=== PATIENT | female | born 1950 | race Caucasian/White ===

== ENCOUNTER 2020-12-13 20:11 | Observation (INO) ==
[2020-12-13 20:51] LABS: Basophils % 0.6 % (0.0-0.8); Eosinophils # 0.4 10*3/uL (0.0-0.87); Eosinophils % 5.3 % (0.00-10.9); Hematocrit 46.9 VOL% (35.7-47.0); Hemoglobin 15.1 GM/DL (12.0-16.0); Immature Granulocytes % 0.5 %; Immature Granulocytes Absolute 0.03 #; Lymphocytes % 30.7 % (21.3-54.2); Mean Corpuscular HGB Conc 32.2 GM/DL (32-36); Mean Corpuscular Volume 87.8 FL (87-102); Mean Platelet Volume 10.9 FL (9.6-12.0); Monocytes % 9.5 % (1.7-12.7); Neutrophils % 53.4 % (38.7-73.9); Platelet Count 211 T/CUMM (130-400); Red Blood Count 5.34 MC/CUMM (3.8-5.5); Red Cell Distribution Width 13.7 % (9.3-17.3); White Blood Count 6.7 T/CUMM (4-12)
[2020-12-13 21:03] LABS: Partial Thromboplastin Time 29.1 SECS (23.9-33.8)
[2020-12-13 21:18] LABS: Albumin 3.9 G/DL (3.4-5.0); Bilirubin,Total 0.5 MG/DL (0.20-1.00); Calcium 9.5 MG/DL (8.5-10.1); Osmolality,Calculated 283.3 MOS/KG (273-304); Potassium 4.2 MMOL/L (3.5-5.1); Total Protein 8.1 G/DL (6.4-8.2)
[2020-12-13] MEDS ORDERED: hydrALAZINE 20 MG/1 ML VIAL IV STA (21:18)
[2020-12-13] MEDS ORDERED: ONDANSETRON 4 MG/2 ML VIAL IV STA (23:42)
[2020-12-14] MEDS ORDERED: ONDANSETRON 4 MG/2 ML VIAL IV PRN (00:35)
[2020-12-14] MEDS ORDERED: ACETAMINOPHEN 325 MG TABLET PO PRN (00:35)
[2020-12-14] MEDS: SODIUM CHLORIDE 0.45% 1,000 ML IV SCH ×2 (01:03→09:24)
[2020-12-14] MEDS ORDERED: NITROGLYCERIN SL 0.4 MG TABLET SL PRN (07:53)
[2020-12-14] MEDS ORDERED: CYANOCOBALAMIN 500 MCG TABLET PO SCH (09:00)
[2020-12-14] MEDS ORDERED: DOCUSATE SODIUM 100 MG CAPSULE PO SCH (09:00)
[2020-12-14] MEDS ORDERED: ASPIRIN CHEW 81 MG TABLET PO SCH (09:00)
[2020-12-14] MEDS ORDERED: ASCORBIC ACID 500 MG TABLET PO SCH (09:00)
[2020-12-14] MEDS ORDERED: ZINC GLUCONATE 50 MG TABLET PO SCH (09:00)
[2020-12-14] MEDS ORDERED: CLOPIDOGREL 75 MG TABLET PO SCH (09:00)
[2020-12-14] MEDS ORDERED: carvediloL 6.25 MG TABLET PO SCH (09:00)
[2020-12-14] MEDS ORDERED: CHOLECALCIFEROL 1,000 UNIT TABLET PO SCH (09:00)
[2020-12-14] MEDS ORDERED: MECLIZINE 25 MG TABLET PO PRN (10:53)
[2020-12-14 12:07] VITALS: BP 129/58
[2020-12-14] MEDS ORDERED: ESTRADIOL 1 MG TABLET PO SCH (21:00)
[2020-12-14] MEDS ORDERED: MAGNESIUM OXIDE 400 MG TABLET PO SCH (21:00)
[2020-12-14] MEDS ORDERED: COENZYME Q10 100 MG CAPSULE PO SCH (21:00)
[2020-12-16] MEDS ORDERED: ROSUVASTATIN 20 MG TABLET PO SCH (07:53)
== END 2020-12-14 14:56 | disposition home or self-care (01) ==
LOC: EDUNIT# → EDBD → N.ED 20:11 → N.EDINP 20:11 → N.TELES 23:42
PROVIDERS: ADMIT Family Medicine; ATTEND Family Medicine

== ENCOUNTER 2021-09-11 23:03 | Inpatient (IN) ==
[2021-09-11] MEDS ORDERED: FAMOTIDINE 20 MG/2 ML VIAL IV STA (23:24)
[2021-09-11 23:53] LABS: INR 1.2; Partial Thromboplastin Time 25.4 SECS (23.8-32.1)
[2021-09-12 00:09] LABS: Alanine Aminotransferase 23 U/L (13-56); Albumin 2.4 G/DL (3.4-5.0); Alkaline Phosphatase 60 U/L (45-117); Aspartate Amino Transferase 21 U/L (0-37); Bilirubin,Total < 0.39 MG/DL (0.20-1.00); Blood Urea Nitrogen 44 MG/DL (7-18); Calcium 7.8 MG/DL (8.5-10.1); Carbon Dioxide 22 MMOL/L (21-32); Chloride 111 MMOL/L (98-107); Estimated Glom Filtration Rate 48 ML/MIN; Glucose 198 MG/DL (74-106); Osmolality,Calculated 295.4 MOS/KG (273-304); Potassium 4.3 MMOL/L (3.5-5.1); Sodium 140 MMOL/L (136-145); Total Protein 4.8 G/DL (6.4-8.2)
[2021-09-12 00:10] LABS: Basophils % 0.3 % (0.0-0.8); Eosinophils # 0.1 10*3/uL (0.0-0.87); Eosinophils % 0.7 % (0.00-10.9); Hematocrit 20.9 VOL% (35.7-47.0); Hemoglobin 6.5 GM/DL (12.0-16.0); Immature Granulocytes % 0.6 %; Immature Granulocytes Absolute 0.05 #; Lymphocytes # 1.4 10*3/uL (1.4-4.0); Lymphocytes % 16.1 % (21.3-54.2); Mean Corpuscular HGB Conc 31.1 GM/DL (32-36); Mean Corpuscular Volume 91.3 FL (87-102); Mean Platelet Volume 10.4 FL (9.6-12.0); Monocytes # 0.7 10*3/uL (0.11-0.8); Neutrophils % 74.3 % (38.7-73.9); Platelet Count 306 T/CUMM (130-400); Red Blood Count 2.29 MC/CUMM (3.8-5.5); Red Cell Distribution Width 14.8 % (9.3-17.3); White Blood Count 8.9 T/CUMM (4-12)
[2021-09-12] MEDS ORDERED: SODIUM CHLORIDE 0.9% 1,000 ML IV PRN (00:16)
[2021-09-12] MEDS ORDERED: ACETAMINOPHEN 325 MG TABLET PO PRN (00:19)
[2021-09-12] MEDS: ONDANSETRON 4 MG/2 ML VIAL IV PRN ×2 (01:35→09:07)
[2021-09-12] MEDS ORDERED: NITROGLYCERIN SL 0.4 MG TABLET SL PRN (07:34)
[2021-09-12 08:04] LABS: Basophils # 0.1 10*3/uL (0.0-0.2); Basophils % 0.7 % (0.0-0.8); Eosinophils # 0.1 10*3/uL (0.0-0.87); Eosinophils % 1.1 % (0.00-10.9); Hematocrit 25.7 VOL% (35.7-47.0); Immature Granulocytes % 0.7 %; Immature Granulocytes Absolute 0.06 #; Lymphocytes # 2.1 10*3/uL (1.4-4.0); Lymphocytes % 23.1 % (21.3-54.2); Mean Corpuscular HGB Conc 32.3 GM/DL (32-36); Mean Corpuscular Volume 90.2 FL (87-102); Monocytes # 0.9 10*3/uL (0.11-0.8); Monocytes % 10.2 % (1.7-12.7); Neutrophils % 64.2 % (38.7-73.9); Platelet Count 286 T/CUMM (130-400); Red Cell Distribution Width 14.6 % (9.3-17.3); White Blood Count 9.1 T/CUMM (4-12)
[2021-09-12 08:05] LABS: Red Blood Count 2.85 MC/CUMM (3.8-5.5)
[2021-09-12 08:06] LABS: Hemoglobin 8.3 GM/DL (12.0-16.0)
[2021-09-12] MEDS ORDERED: AZITHROMYCIN INJ 500 MG in SODIUM CHLORIDE 0.9% 250 ML IV ONE (08:13)
[2021-09-12] MEDS ORDERED: HYDROmorphone 1 MG/1 ML SYRINGE IM PRN (08:20)
[2021-09-12] MEDS: FAMOTIDINE 20 MG TABLET PO SCH ×2 (08:22→20:00)
[2021-09-12] MEDS: DEXTROSE 5% NACL 0.9% 1,000 ML IV SCH ×3 (08:22→16:55)
[2021-09-12] MEDS: cefTRIAXone 1,000 MG in SODIUM CHLORIDE 0.9% 100 ML IV SCH (08:46)
[2021-09-12] MEDS: methylPREDNISolone SOD SUC 40 MG/1 ML VIAL IV SCH ×3 (08:47→23:43)
[2021-09-12] MEDS: BENZONATATE 100 MG CAPSULE PO PRN (08:52)
[2021-09-12] MEDS ORDERED: carvediloL 6.25 MG TABLET PO SCH (09:00)
[2021-09-12] MEDS ORDERED: carvediloL 6.25 MG TABLET PO ONE (09:00)
[2021-09-12] MEDS: ALBUTEROL/IPRATROPIUM 3 ML NEB RESP TX SCH ×4 (10:20→23:28)
[2021-09-12] MEDS ORDERED: SODIUM CHLORIDE 0.9% 500 ML IV SCH (13:30)
[2021-09-12] MEDS ORDERED: propofoL 200 MG/20 ML VIAL IV ONE (13:41)
[2021-09-12] MEDS: LACTATED RINGERS 1,000 ML IV SCH (13:41)
[2021-09-12] MEDS ORDERED: ETOMIDATE 20 MG/10 ML VIAL IV ONE (13:41)
[2021-09-12] MEDS ORDERED: LIDOCAINE 2% 5 ML VIAL ONE (13:41)
[2021-09-12 16:44] LABS: Hematocrit 29.5 VOL% (35.7-47.0); Hemoglobin 9.4 GM/DL (12.0-16.0)
[2021-09-12] MEDS: carvediloL 12.5 MG TABLET PO SCH (16:47)
[2021-09-12 19:30] LABS: Hematocrit 27.7 VOL% (35.7-47.0); Hemoglobin 9.2 GM/DL (12.0-16.0)
[2021-09-13 01:32] LABS: Hematocrit 27.4 VOL% (35.7-47.0); Hemoglobin 8.9 GM/DL (12.0-16.0)
[2021-09-13 01:52] LABS: Alanine Aminotransferase 20 U/L (13-56); Albumin 2.8 G/DL (3.4-5.0); Alkaline Phosphatase 60 U/L (45-117); Aspartate Amino Transferase 12 U/L (0-37); Bilirubin,Total < 0.39 MG/DL (0.20-1.00); Blood Urea Nitrogen 29 MG/DL (7-18); Calcium 8.7 MG/DL (8.5-10.1); Carbon Dioxide 23 MMOL/L (21-32); Chloride 112 MMOL/L (98-107); Estimated Glom Filtration Rate 59 ML/MIN; Glucose 181 MG/DL (74-106); Osmolality,Calculated 289.4 MOS/KG (273-304); Potassium 4.4 MMOL/L (3.5-5.1); Sodium 140 MMOL/L (136-145); Total Protein 5.9 G/DL (6.4-8.2)
[2021-09-13] MEDS: ALBUTEROL/IPRATROPIUM 3 ML NEB RESP TX SCH ×5 (03:16→18:59)
[2021-09-13 05:12] LABS: Basophils % 0.1 % (0.0-0.8); Hematocrit 28.5 VOL% (35.7-47.0); Hemoglobin 9.2 GM/DL (12.0-16.0); Immature Granulocytes % 1.3 %; Immature Granulocytes Absolute 0.13 #; Lymphocytes # 1.2 10*3/uL (1.4-4.0); Lymphocytes % 12.3 % (21.3-54.2); Mean Corpuscular HGB Conc 32.3 GM/DL (32-36); Mean Corpuscular Volume 89.3 FL (87-102); Mean Platelet Volume 10.1 FL (9.6-12.0); Monocytes # 0.2 10*3/uL (0.11-0.8); Monocytes % 2.2 % (1.7-12.7); Neutrophils % 84.1 % (38.7-73.9); Platelet Count 261 T/CUMM (130-400); Red Blood Count 3.19 MC/CUMM (3.8-5.5); Red Cell Distribution Width 14.8 % (9.3-17.3); White Blood Count 9.8 T/CUMM (4-12)
[2021-09-13] MEDS: FAMOTIDINE 20 MG TABLET PO SCH ×2 (10:05→22:05)
[2021-09-13] MEDS: CHOLECALCIFEROL 1,000 UNIT TABLET PO SCH (10:06)
[2021-09-13] MEDS: CYANOCOBALAMIN 500 MCG TABLET PO SCH (10:06)
[2021-09-13] MEDS: carvediloL 12.5 MG TABLET PO SCH ×2 (10:06→17:23)
[2021-09-13] MEDS: methylPREDNISolone SOD SUC 40 MG/1 ML VIAL IV SCH ×2 (10:07→17:23)
[2021-09-13] MEDS: cefTRIAXone 1,000 MG in SODIUM CHLORIDE 0.9% 100 ML IV SCH (10:13)
[2021-09-13] MEDS: LACTATED RINGERS 1,000 ML IV SCH (11:09)
[2021-09-13] MEDS: AZITHROMYCIN INJ 250 MG in SODIUM CHLORIDE 0.9% 250 ML IV SCH (12:46)
[2021-09-13] MEDS: ESTRADIOL 1 MG TABLET PO SCH (22:05)
[2021-09-13] MEDS: MAGNESIUM OXIDE 400 MG TABLET PO SCH (22:05)
[2021-09-13] MEDS: COENZYME Q10 100 MG CAPSULE PO SCH (22:05)
[2021-09-14] MEDS: ALBUTEROL/IPRATROPIUM 3 ML NEB RESP TX SCH ×7 (00:02→23:50)
[2021-09-14] MEDS: methylPREDNISolone SOD SUC 40 MG/1 ML VIAL IV SCH ×3 (00:04→17:20)
[2021-09-14 04:51] LABS: Basophils % 0.1 % (0.0-0.8); Hematocrit 24.8 VOL% (35.7-47.0); Immature Granulocytes % 1.3 %; Immature Granulocytes Absolute 0.16 #; Lymphocytes # 1.3 10*3/uL (1.4-4.0); Lymphocytes % 10.3 % (21.3-54.2); Mean Corpuscular HGB Conc 32.3 GM/DL (32-36); Mean Corpuscular Volume 90.8 FL (87-102); Monocytes # 0.3 10*3/uL (0.11-0.8); Monocytes % 2.6 % (1.7-12.7); NRBC # 0.03 10*3/uL; Neutrophils % 85.7 % (38.7-73.9); Platelet Count 270 T/CUMM (130-400); Red Blood Count 2.73 MC/CUMM (3.8-5.5); Red Cell Distribution Width 15.5 % (9.3-17.3); White Blood Count 12.6 T/CUMM (4-12)
[2021-09-14 05:16] LABS: Alanine Aminotransferase 21 U/L (13-56); Albumin 2.6 G/DL (3.4-5.0); Alkaline Phosphatase 57 U/L (45-117); Aspartate Amino Transferase 14 U/L (0-37); Bilirubin,Total < 0.39 MG/DL (0.20-1.00); Blood Urea Nitrogen 43 MG/DL (7-18); Calcium 8.9 MG/DL (8.5-10.1); Carbon Dioxide 22 MMOL/L (21-32); Chloride 109 MMOL/L (98-107); Estimated Glom Filtration Rate 358 ML/MIN; Glucose 227 MG/DL (74-106); Osmolality,Calculated 294.5 MOS/KG (273-304); Potassium 4.3 MMOL/L (3.5-5.1); Sodium 139 MMOL/L (136-145); Total Protein 5.7 G/DL (6.4-8.2)
[2021-09-14 08:45] LABS: Hematocrit 25.5 VOL% (35.7-47.0); Hemoglobin 8.1 GM/DL (12.0-16.0)
[2021-09-14] MEDS: BENZONATATE 100 MG CAPSULE PO PRN (09:44)
[2021-09-14] MEDS: CHOLECALCIFEROL 1,000 UNIT TABLET PO SCH (09:45)
[2021-09-14] MEDS: FAMOTIDINE 20 MG TABLET PO SCH ×2 (09:45→20:55)
[2021-09-14] MEDS: carvediloL 12.5 MG TABLET PO SCH ×2 (09:45→17:17)
[2021-09-14] MEDS: CYANOCOBALAMIN 500 MCG TABLET PO SCH (09:45)
[2021-09-14] MEDS: cefTRIAXone 1,000 MG in SODIUM CHLORIDE 0.9% 100 ML IV SCH (09:48)
[2021-09-14] MEDS: SODIUM CHLORIDE 0.45% 1,000 ML IV SCH ×2 (09:57→20:08)
[2021-09-14] MEDS: LACTATED RINGERS 1,000 ML IV SCH (10:00)
[2021-09-14] MEDS: AZITHROMYCIN INJ 250 MG in SODIUM CHLORIDE 0.9% 250 ML IV SCH (10:50)
[2021-09-14 13:43] LABS: Hematocrit 24.2 VOL% (35.7-47.0); Hemoglobin 7.6 GM/DL (12.0-16.0)
[2021-09-14] MEDS: INSULIN LISPRO 100 UNIT/ML SUBCUT SCH ×3 (14:33→21:42)
[2021-09-14] MEDS: DEXTROSE 5% NACL 0.9% 1,000 ML IV SCH ×2 (20:12→20:13)
[2021-09-14] MEDS: COENZYME Q10 100 MG CAPSULE PO SCH (20:55)
[2021-09-14] MEDS: ESTRADIOL 1 MG TABLET PO SCH (20:56)
[2021-09-14] MEDS: MAGNESIUM OXIDE 400 MG TABLET PO SCH (20:56)
[2021-09-15] MEDS: methylPREDNISolone SOD SUC 40 MG/1 ML VIAL IV SCH ×3 (00:24→17:20)
[2021-09-15] MEDS: ALBUTEROL/IPRATROPIUM 3 ML NEB RESP TX SCH ×6 (02:31→23:50)
[2021-09-15 05:43] LABS: Basophils % 0.1 % (0.0-0.8); Hematocrit 22.1 VOL% (35.7-47.0); Hemoglobin 7.2 GM/DL (12.0-16.0); Immature Granulocytes % 1.5 %; Immature Granulocytes Absolute 0.21 #; Lymphocytes # 1.4 10*3/uL (1.4-4.0); Lymphocytes % 9.5 % (21.3-54.2); Mean Corpuscular HGB Conc 32.6 GM/DL (32-36); Mean Corpuscular Volume 90.2 FL (87-102); Mean Platelet Volume 10.4 FL (9.6-12.0); Monocytes # 0.4 10*3/uL (0.11-0.8); Monocytes % 2.6 % (1.7-12.7); NRBC # 0.04 10*3/uL; Neutrophils % 86.3 % (38.7-73.9); Platelet Count 264 T/CUMM (130-400); Red Blood Count 2.45 MC/CUMM (3.8-5.5); Red Cell Distribution Width 15.8 % (9.3-17.3); White Blood Count 14.4 T/CUMM (4-12)
[2021-09-15 06:00] LABS: Alanine Aminotransferase 20 U/L (13-56); Albumin 2.7 G/DL (3.4-5.0); Alkaline Phosphatase 54 U/L (45-117); Aspartate Amino Transferase 17 U/L (0-37); Bilirubin,Total < 0.39 MG/DL (0.20-1.00); Blood Urea Nitrogen 38 MG/DL (7-18); Calcium 8.7 MG/DL (8.5-10.1); Carbon Dioxide 22 MMOL/L (21-32); Chloride 109 MMOL/L (98-107); Estimated Glom Filtration Rate 401 ML/MIN; Glucose 200 MG/DL (74-106); Osmolality,Calculated 289.7 MOS/KG (273-304); Potassium 4.1 MMOL/L (3.5-5.1); Sodium 138 MMOL/L (136-145); Total Protein 5.5 G/DL (6.4-8.2)
[2021-09-15] MEDS: SODIUM CHLORIDE 0.45% 1,000 ML IV SCH ×2 (06:33→16:11)
[2021-09-15] MEDS: CYANOCOBALAMIN 500 MCG TABLET PO SCH (10:16)
[2021-09-15] MEDS: FAMOTIDINE 20 MG TABLET PO SCH ×2 (10:16→21:58)
[2021-09-15] MEDS: AZITHROMYCIN 250 MG TABLET PO SCH (10:17)
[2021-09-15] MEDS: carvediloL 12.5 MG TABLET PO SCH ×2 (10:17→17:17)
[2021-09-15] MEDS: CHOLECALCIFEROL 1,000 UNIT TABLET PO SCH (10:17)
[2021-09-15] MEDS: BENZONATATE 100 MG CAPSULE PO PRN (10:17)
[2021-09-15] MEDS: INSULIN LISPRO 100 UNIT/ML SUBCUT SCH ×4 (10:18→22:00)
[2021-09-15] MEDS: cefTRIAXone 1,000 MG in SODIUM CHLORIDE 0.9% 100 ML IV SCH (10:20)
[2021-09-15] MEDS: LACTATED RINGERS 1,000 ML IV SCH (12:45)
[2021-09-15 19:02] LABS: Hematocrit 22.8 VOL% (35.7-47.0); Hemoglobin 7.3 GM/DL (12.0-16.0)
[2021-09-15] MEDS: COENZYME Q10 100 MG CAPSULE PO SCH (21:59)
[2021-09-15] MEDS: MAGNESIUM OXIDE 400 MG TABLET PO SCH (21:59)
[2021-09-15] MEDS: ESTRADIOL 1 MG TABLET PO SCH (21:59)
[2021-09-15] MEDS ORDERED: METOPROLOL TARTRATE 5 MG/5 ML VIAL IV ONE (23:20)
[2021-09-16] MEDS: methylPREDNISolone SOD SUC 40 MG/1 ML VIAL IV SCH ×3 (00:18→22:49)
[2021-09-16] MEDS: ALBUTEROL/IPRATROPIUM 3 ML NEB RESP TX SCH ×6 (03:25→23:50)
[2021-09-16 05:35] LABS: Basophils % 0.1 % (0.0-0.8); Hematocrit 21.7 VOL% (35.7-47.0); Immature Granulocytes % 2.1 %; Immature Granulocytes Absolute 0.26 #; Lymphocytes # 1.2 10*3/uL (1.4-4.0); Lymphocytes % 9.9 % (21.3-54.2); Mean Corpuscular HGB Conc 32.3 GM/DL (32-36); Mean Corpuscular Volume 90.4 FL (87-102); Mean Platelet Volume 10.1 FL (9.6-12.0); Monocytes # 0.4 10*3/uL (0.11-0.8); Monocytes % 3.6 % (1.7-12.7); NRBC # 0.04 10*3/uL; Neutrophils % 84.3 % (38.7-73.9); Platelet Count 276 T/CUMM (130-400); Red Cell Distribution Width 16.3 % (9.3-17.3); White Blood Count 12.2 T/CUMM (4-12)
[2021-09-16] MEDS: cefTRIAXone 1,000 MG in SODIUM CHLORIDE 0.9% 100 ML IV SCH (09:34)
[2021-09-16] MEDS: AZITHROMYCIN 250 MG TABLET PO SCH (09:35)
[2021-09-16] MEDS: CYANOCOBALAMIN 500 MCG TABLET PO SCH (09:35)
[2021-09-16] MEDS: BENZONATATE 100 MG CAPSULE PO PRN (09:36)
[2021-09-16] MEDS: carvediloL 12.5 MG TABLET PO SCH (09:36)
[2021-09-16] MEDS: INSULIN LISPRO 100 UNIT/ML SUBCUT SCH ×3 (09:37→17:51)
[2021-09-16] MEDS: CHOLECALCIFEROL 1,000 UNIT TABLET PO SCH (09:37)
[2021-09-16] MEDS: FAMOTIDINE 20 MG TABLET PO SCH ×2 (09:37→20:44)
[2021-09-16] MEDS: LACTATED RINGERS 1,000 ML IV SCH (11:25)
[2021-09-16 11:56] LABS: Hematocrit 22.3 VOL% (35.7-47.0); Hemoglobin 7.2 GM/DL (12.0-16.0)
[2021-09-16] MEDS: ASCORBIC ACID 500 MG TABLET PO SCH ×2 (12:52→20:44)
[2021-09-16] MEDS ORDERED: MECLIZINE 25 MG TABLET PO PRN (13:12)
[2021-09-16] MEDS ORDERED: SODIUM CHLORIDE 0.9% 1,000 ML IV PRN (14:06)
[2021-09-16] MEDS: carvediloL 25 MG TABLET PO SCH (17:06)
[2021-09-16] MEDS: LOSARTAN 25 MG TABLET PO SCH (17:06)
[2021-09-16] MEDS: hydrALAZINE 20 MG/1 ML VIAL IV PRN (18:11)
[2021-09-16] MEDS: COENZYME Q10 100 MG CAPSULE PO SCH (20:43)
[2021-09-16] MEDS: MAGNESIUM OXIDE 400 MG TABLET PO SCH (20:43)
[2021-09-16] MEDS: ESTRADIOL 1 MG TABLET PO SCH (20:44)
[2021-09-16] MEDS: INSULIN REGULAR 100 UNIT/ML SUBCUT SCH (22:49)
[2021-09-17] MEDS: ALBUTEROL/IPRATROPIUM 3 ML NEB RESP TX SCH ×2 (03:47→07:15)
[2021-09-17 05:25] LABS: Basophils % 0.3 % (0.0-0.8); Hematocrit 28.8 VOL% (35.7-47.0); Hemoglobin 9.5 GM/DL (12.0-16.0); Immature Granulocytes % 4.2 %; Immature Granulocytes Absolute 0.57 #; Lymphocytes # 1.5 10*3/uL (1.4-4.0); Lymphocytes % 10.7 % (21.3-54.2); Mean Corpuscular Volume 89.2 FL (87-102); Monocytes # 0.8 10*3/uL (0.11-0.8); Monocytes % 5.9 % (1.7-12.7); NRBC # 0.06 10*3/uL; Neutrophils % 78.9 % (38.7-73.9); Platelet Count 308 T/CUMM (130-400); Red Blood Count 3.23 MC/CUMM (3.8-5.5); Red Cell Distribution Width 15.9 % (9.3-17.3); White Blood Count 13.5 T/CUMM (4-12)
[2021-09-17 05:45] LABS: Band Neutrophils 2 % (0-10); Hypochromia 1+; Lymphocytes 8 % (20-55); Metamyelocytes 1 %; Microcytosis 1+; Polychromasia Slight; Total Cells Counted 100
[2021-09-17 05:46] LABS: Platelet Estimate Normal
[2021-09-17 05:52] LABS: Albumin 2.9 G/DL (3.4-5.0); Bilirubin,Total 0.6 MG/DL (0.20-1.00); Calcium 8.7 MG/DL (8.5-10.1); Osmolality,Calculated 287.7 MOS/KG (273-304); Potassium 3.9 MMOL/L (3.5-5.1); Total Protein 5.8 G/DL (6.4-8.2)
[2021-09-17] MEDS: hydrALAZINE 20 MG/1 ML VIAL IV PRN (06:25)
[2021-09-17] MEDS ORDERED: methylPREDNISolone 4 MG TABLET PO SCH (08:30)
[2021-09-17] MEDS ORDERED: CEFDINIR 300 MG CAPSULE PO SCH (09:00)
[2021-09-17] MEDS ORDERED: COLCHICINE 0.6 MG CAPSULE PO SCH (09:00)
[2021-09-17] MEDS: CYANOCOBALAMIN 500 MCG TABLET PO SCH (10:11)
[2021-09-17] MEDS: CHOLECALCIFEROL 1,000 UNIT TABLET PO SCH (10:11)
[2021-09-17] MEDS: ASCORBIC ACID 500 MG TABLET PO SCH (10:11)
[2021-09-17] MEDS: LOSARTAN 25 MG TABLET PO SCH (10:11)
[2021-09-17] MEDS: FAMOTIDINE 20 MG TABLET PO SCH (10:11)
[2021-09-17] MEDS: carvediloL 25 MG TABLET PO SCH (10:11)
[2021-09-17] MEDS: methylPREDNISolone SOD SUC 40 MG/1 ML VIAL IV SCH (10:12)
[2021-09-17] MEDS: LACTATED RINGERS 1,000 ML IV SCH (10:31)
[2021-09-17] MEDS: INSULIN REGULAR 100 UNIT/ML SUBCUT SCH (10:31)
[2021-09-17 12:19] VITALS: BP 147/73
[2021-09-22] MEDS ORDERED: ROSUVASTATIN 20 MG TABLET PO SCH (13:12)
== END 2021-09-17 10:34 | disposition home or self-care (01) | DRG 813 ==
LOC: EDUNIT# → EDBD → N.ED 23:03 → N.EDINP 09-12 00:19 → N.TELES 09-12 00:43
PROVIDERS: ADMIT Family Medicine; ATTEND Family Medicine